=== PATIENT | female | born 1975 | race Caucasian/White ===

== ENCOUNTER 2019-04-27 17:42 | Emergency (ER) | payer OTHER, SELFPAY ==
[2019-04-27 17:53] VITALS: BP 126/80; PULSE 86; RESP 16; TEMP 36.9; O2SAT 100
--- NOTE | 2019-04-27 18:30 | ED.URI ---
HPI - URI/Sore Throat General Chief Complaint: Upper Respiratory Infection Stated Complaint: h/a nausea fatigue and cough Time Seen by Provider: 04/27/19 18:10 Source: patient and RN notes reviewed Mode of arrival: ambulatory Limitations: no limitations History of Present Illness HPI Narrative: Patient presents today with a 4-day history of headache, fatigue, nonproductive cough, slight sore throat.Cough worsened last night. Denies shortness of breath. No history of asthma. She has been taking Tylenol and ibuprofen with mild relief.Recently been exposed to influenza by a coworker. Reports a child had strep throat last week. MD elicited complaint: cough Related Data Allergies Allergy/AdvReac Type Severity Reaction Status Date / Time No Known Allergies Allergy Verified 04/27/19 18:18 Review of Systems Review of Systems: Narrative: CONSTITUTIONAL: Denies body aches, fever, chills, or sweats.+Fatigue EYES: Denies visual changes, redness, or discharge. ENT: Denies rhinorrhea, congestion, or otalgia.+Sore throat CARDIOVASCULAR: Denies chest pain, palpitations, or edema. RESPIRATORY: Denies dyspnea.+Cough GASTROINTESTINAL: Denies abdominal pain, nausea, vomiting, or diarrhea. GENITOURINARY: Denies dysuria or hematuria. SKIN: Denies rash, itching, or wounds. MUSCULOSKELETAL: Denies back pain, joint pain, or myalgia. NEUROLOGIC: Denies numbness, tingling, or weakness.+Headache PSYCH: Denies depression or anxiety. PMFSH Comments At time of signature, I have reviewed and agree with nursing past medical, surgical, social and family history unless otherwise noted. Please see nursing chart for further information. There is no relevant family history pertinent to the presenting complaint Exam Narrative: Exam Narrative: GENERAL: Well-appearing, well-nourished, and in no acute distress. HEAD: Normocephalic, atraumatic. EYES: EOMI. No redness or drainage. Conjunctivae normal. ENT: Mucous membranes pink and moist. Nares clear. No rhinorrhea. TMs normal bilaterally. Throat Mildly erythematous without edema or exudate. Uvula midline. NECK: Normal AROM. Supple. No lymphadenopathy. CHEST: No respiratory distress. Clear to auscultation.Frequent harsh dry cough noted. HEART: Regular rate and rhythm. No murmur appreciated. Normal peripheral pulses. EXTREMITIES: Normal range of motion. No edema. SKIN: Warm, dry, no rash. NEURO: No focal deficits. Alert and oriented x3. Gait steady. PSYCH: Normal affect. No signs of depression or anxiety. Course Course Emergency Course: Patient declined strep swab today. Vital Signs Vital signs: Vital Signs Temperature 98.4 F 04/27/19 17:53 Pulse Rate 86 04/27/19 17:53 Respiratory Rate 16 04/27/19 17:53 Blood Pressure 126/80 04/27/19 17:53 Pulse Oximetry 100 04/27/19 17:53 Temperature 98.4 F 04/27/19 17:53 Pulse Rate 86 04/27/19 17:53 Respiratory Rate 16 04/27/19 17:53 Blood Pressure 126/80 04/27/19 17:53 Pulse Oximetry 100 04/27/19 17:53 Reviewed. Pt has been instructed to follow up with her PCP regarding her elevated blood pressure today. MDM - URI/Sore Throat Differential Diagnosis Differential diagnosis: Likely upper respiratory infection, influenza and pharyngitis Lab Data Attestation: I reviewed the patient's lab results. Lab results narrative: Influenza negative Critical Care Time Critical Care Time Critical Care Time: No Discharge Plan Discharge Clinical Impression: Bronchitis Upper respiratory infection Qualifiers: URI type: unspecified URI Qualified Code(s): J06.9 - Acute upper respiratory infection, unspecified Pharyngitis Qualifiers: Pharyngitis/tonsillitis etiology: unspecified etiology Qualified Code(s): J02.9 - Acute pharyngitis, unspecified Patient Disposition: Home, Self-Care Condition: Stable Instructions: Pharyngitis (ED), Upper Respiratory Infection (DC) Additional Instructions: Your influenza swab was negati
== END 2019-04-27 18:35 | disposition home or self-care (01) ==
PROVIDERS: Emergency Provider Nurse Practitioner
DX: J40 Bronchitis, not specified as acute or chronic (principal); J06.9 Acute upper respiratory infection, unspecified; J02.9 Acute pharyngitis, unspecified
CPT/HCPCS: 99213; G0463

== ENCOUNTER 2021-10-23 16:24 | Emergency (ER) | payer OTHER, SELFPAY ==
[2021-10-23 16:30] VITALS: BP 119/83; PULSE 84; RESP 14; TEMP 37.4; O2SAT 100
[2021-10-23 16:37] VITALS: BP 119/83; PULSE 84; RESP 14; TEMP 37.4; O2SAT 100
--- NOTE | 2021-10-23 16:42 | ED.SKABFB ---
HPI - Skin/Abscess/Foreign Bdy General Chief complaint: Skin/Abscess/Foreign Body Stated complaint: Insect Bite Time Seen by Provider: 10/23/21 16:45 Source: patient and RN notes reviewed Mode of arrival: ambulatory Limitations: no limitations History of Present Illness HPI narrative: 46-year-old female presents concern for spider bite on her left hip. Reports she moved into a new house and has noticed a lot of spiders including brown recluse spiders. Reports she woke up from a nap and had a small blister area with surrounding redness. She reports the redness has gotten larger, and the area has become slightly tender. She denies any black center or drainage. MD complaint: insect bite/sting Related Data Allergies Allergy/AdvReac Type Severity Reaction Status Date / Time No Known Allergies Allergy Verified 10/23/21 16:36 Review of Systems Review of Systems: CONSTITUTIONAL: Denies malaise, chills, sweats, or fever. EYES: Denies redness, or discharge. ENT: Denies rhinorrhea, congestion, swollen lips, swollen tongue CARDIOVASCULAR: Denies chest pain, palpitations, or edema. RESPIRATORY: Denies cough or dyspnea. GASTROINTESTINAL: Denies abdominal pain, nausea, vomiting SKIN: Reports spider bite on her left hip MUSCULOSKELETAL: Denies joint pain or myalgia. NEUROLOGIC: Denies headache. All systems reviewed & are unremarkable except as noted in HPI and below PMFSH Comments At time of signature, agree with nursing past medical, surgical, social and family history. There is no relevant family history pertinent to the presenting complaint Exam Narrative: GENERAL: Well-appearing, well-nourished, and in no acute distress. HEAD: Normocephalic, atraumatic. EYES: PERRLA, conjunctivae clear, and EOMI. ENT: Mucous membranes moist. Oropharynx without edema, erythema or lesions. NECK: Supple. No lymphadenopathy CHEST: Clear to auscultation. No respiratory distress. HEART: Regular rate and rhythm. SKIN: Warm, dry. 13 x 6 cm area of erythema, warmth, mild edema, induration to the left hip with a center clear fluid-filled pustule NEURO: Alert and oriented x3. PSYCH: Normal mood and affect Course Course Emergency Course: Patient is aware of diagnosis, understands and agrees to treatment plan. Anticipatory guidance given. Patient agrees to follow-up as directed and is aware of reasons to seek care at the emergency department. Portions of this record may have been created with voice recognition software Level of Care: Express Care Visit Vital Signs Vital signs: Vital Signs Temperature 99.4 F 10/23/21 16:30 Pulse Rate 84 10/23/21 16:30 Respiratory Rate 14 10/23/21 16:30 Blood Pressure 119/83 10/23/21 16:30 Pulse Oximetry 100 10/23/21 16:30 Oxygen Delivery Room Air 10/23/21 16:30 Temperature 99.4 F 10/23/21 16:37 Pulse Rate 84 10/23/21 16:37 Respiratory Rate 14 10/23/21 16:37 Blood Pressure 119/83 10/23/21 16:37 Pulse Oximetry 100 10/23/21 16:37 Oxygen Delivery Room Air 10/23/21 16:37 Reviewed. MDM - Skin/Abscess/Foreign Bdy MDM Narrative Medical decision making narrative: Does not appear at this time to be erythema multiforme, bullous, SJS, TEN; no evidence at this time to suggest RMSF, endocarditis or Lyme disease; patient looks well, nontoxic and is tolerating oral intake; no neurologic signs or symptoms; no headache, photophobia or neck pain; afebrile; appropriate for initial outpatient treatment; discussed the importance of follow-up, patient agrees; question, viral exanthema, contact dermatitis, allergic dermatitis, eczema, urticaria, venomous spider. No soft palate or uvula edema, no tongue, lip edema or other mucosal involvement, no respiratory compromise, no stridor, no wheezing, no wheezing, no history of syncope, no hypotension, no nausea, vomiting, or diarrhea. Instructed patient to go to nearest ER immediately for any worsening symptoms including but not limited to: fever, spr
== END 2021-10-23 16:55 | disposition home or self-care (01) ==
PROVIDERS: Emergency Provider Nurse Practitioner
DX: S70.262A Insect bite (nonvenomous), left hip, initial encounter (principal); W57.XXXA Bitten or stung by nonvenomous insect and other nonvenomous arthropods, initial encounter
CPT/HCPCS: 99213; G0463

== ENCOUNTER 2024-08-01 19:37 | Emergency (ER) | payer SELFPAY ==
[2024-08-01 19:50] VITALS: BP 150/81; PULSE 77; RESP 20; TEMP 37.2; O2SAT 100
--- NOTE | 2024-08-01 20:30 | ED.DENTAL ---
HPI - Dental/Oral General Chief complaint: Dental/Oral Stated complaint: Tooth Pain Time Seen by Provider: 08/01/24 20:05 Source: patient and RN notes reviewed Mode of arrival: ambulatory Limitations: no limitations History of Present Illness HPI Narrative: 48-year-old female presents Express Care complaining of left upper dental swelling. Patient's post disease specialist in September for possible dentures due to poor dental hygiene and dental decay. Patient said she woke up with pain and swelling this morning to her left upper gum near her 2nd molar. Patient denies any difficulty swallowing, difficulty breathing, excessive drooling, swelling in her hard palate, or any swelling or pain under her tongue. Patient unable to contact her dentist today due to the being closed. Related Data Allergies Allergy/AdvReac Type Severity Reaction Status Date / Time No Known Allergies Allergy Verified 12/04/21 15:14 Review of Systems Review of Systems: CONSTITUTIONAL: Denies fever, chills, or sweats. EYES: Denies visual changes, redness, or discharge. ENT: Denies rhinorrhea, congestion, sore throat, or otalgia. MOUTH: Positive for dental pain and swelling. CARDIOVASCULAR: Denies chest pain, palpitations, or edema. RESPIRATORY: Denies cough or dyspnea. GASTROINTESTINAL: Denies abdominal pain, nausea, vomiting, or diarrhea. GENITOURINARY: Denies dysuria or hematuria. SKIN: Denies rash or itching. MUSCULOSKELETAL: Denies back pain, joint pain, or myalgia. NEUROLOGIC: Denies headache, numbness, or weakness. PSYCHIATRIC: Denies anxiety or depression. All other systems reviewed are negative, except as documented in HPI. PENDING SALE TO [facility] Family History Family History Father Diabetes mellitus Hypertension Depression Heart disease Mother Cancer Hypertension Grandparent Diabetes mellitus Cerebrovascular accident Social History Social History Smoking status: Current every day smoker Tobacco type: cigarettes Alcohol intake: current Alcohol use details: occasional beer or wine Substance use: never Substance use type: does not use Living arrangements: with family Gender identity (if verbalized by the patient): Female Agree to blood products: Yes Comments At the time of my signature, I reviewed and agree with the nursing past medical, surgical, social, and family history. There is no relevant family history pertinent to the patient complaint. Exam Narrative: GENERAL: This is a well-nourished, well-developed adult, in no apparent distress. They are non ill-appearing, nontoxic appearing. HEAD: normocephalic, atraumatic. EYES: Sclera clear/white. Conjunctiva normal. Vision is grossly intact. Extraocular movements intact EARS: External ears normal, Hearing grossly intact. NOSE: External nose normal THROAT: Mucous membranes moist, posterior pharynx clear, without erythema or swelling. Uvula midline. OROPHARYNX: No suspicious lesions or ulcerations. Diffuse to tooth decay missing teeth are present. Gingivitis is present. Area of erythema and swelling near the 2nd molar in the left upper gum. Pustule present with a small area of fluctuance. Area measures less than approximately 0.5 cm. No Induration. No swelling or erythema or tenderness to palpation to the hard palate. Tongue is coated. No swelling or tenderness to palpation under the tongue. No trismus. NECK: Neck supple CARDIOVASCULAR: Regular rate and rhythm RESPIRATORY: Respiratory rate normal, respiratory effort nonlabored, no respiratory distress SKIN: warm, Dry, intact with no suspicious lesions or rash, good texture and turgor. NEURO: awake, alert, and oriented to person, place and time. There were no obvious focal neurologic abnormalities. EXTREMITIES: No joint tenderness, effusion, or edema noted. Course Course Emergency Course: Portions of this record may have been created with voice recognition software Level of Care: Express Care Visit Vital Signs Vital signs: Vital Signs Temperature 99.0 F 08/01/24 19:50 Pulse Rate 77 08/01/24 19:50 Respiratory Rate 20 08/01/24 19:50 Blood Pressure 150/81 H 08/01/24 19:50 Pulse Oximetry 100 08/01/24 19:50 Temperature 99.0 F 08/01/24 19:50 Pulse Rate 77 08/01/24 19:50 Respiratory Rate 20 08/01/24 19:50 Blood Pressure 150/81 H 08/01/24 19:50 Pulse Oximetry 100 08/01/24 19:50 Reviewed MDM - Dental/Oral MDM Narrative Medical decision making narrative: Patient is developing a dental abscess her 2nd molar left upper gum. Will treat empirically with penicillin VK. Dental hygiene discussed with patient. Advised close follow-up with dentist. Will prescribe viscous lidocaine as needed for pain. Discussed physical exam findings. Advised supportive measures and signs/symptoms to go to the ER. Pt is appropriate for outpt treatment and f/u. Differential Diagnosis Differential diagnosis: Likely gingival abscess, dental caries and dental abscess Critical Care Time Critical Care Time Critical Care Time: No Discharge Plan Discharge Clinical Impression: Abscess, dental Patient Disposition: Home Condition: Stable Instructions: Antibiotic Form, Dental Abscess (ED) Additional Instructions: Take the antibiotics as directed. You may alternate Tylenol and ibuprofen as needed for pain. You may use viscous lidocaine as needed for pain in your mouth. Use a Q-tip and apply directly to the affected area. [place] your teeth and floss at least 2 times a day. You may use mouthwash after each brushing as well. Follow-up with dentist next week. If you develop worsening swelling, fevers, difficulty swallowing or breathing, difficulty opening her jaw, swelling under the tongue, or any other concerns please go to the ER immediately. Patient Language: Italian Prescriptions: New penicillin V potassium 500 mg tablet 500 mg PO QID 10 Days Qty: 40 0RF lidocaine HCl [Lidocaine Viscous] 2 % solution 1 applic mucous membrane TID PRN (Reason: pain) Qty: 1 0RF Follow-up/Referrals: PHYSICIAN,LOOPING MACHINE OPERATOR [Primary Care Provider] - Stand Alone Forms: Work/School Release IP Time of Disposition: 20:22
== END 2024-08-01 20:23 | disposition home or self-care (01) ==
DX: K04.7 Periapical abscess without sinus (principal); F17.210 Nicotine dependence, cigarettes, uncomplicated
CPT/HCPCS: 99213; G0463